=== PATIENT | male | born 1995 | race Caucasian/White ===

== ENCOUNTER 2016-12-10 10:46 | Emergency (ER) | payer OTHER ==
[~2016-12-10] VITALS: Ht 177.8 cm; Wt 63.3 kg
[~2016-12-10 10:46] MED LIST: KENALOG,ARISTOC80 GM TP; TYLENOL EXTRA500 MG PO; VENTOLIN HFA18 GM IH; XANAX0.5 MG PO
[2016-12-10 12:14] LABS: HEMATOCRIT 41.9 % (38.0-50.0); MCH 29.1 PG (29.0-34.0); MCHC 33.9 G/DL (30.0-36.0); MCV 85.9 FL (86-99); MEAN PLAT.VOLUME 8.7 uM^3 (9.0-12.4); PLATELET COUNT 336 K/uL (156-360); RBC DIS.WIDTH-CV 12.3 % (11.8-14.6); RED BLOOD COUNT 4.88 M/uL (4.00-5.50); WHITE BLOOD COUNT 9.6 K/uL (4.1-10.2)
[2016-12-10 12:26] LABS: CHLORIDE 106 mEq/L (99-109); POTASSIUM 4.3 mEq/L (3.7-5.4); SODIUM 138 mEq/L (136-147)
[2016-12-10 12:29] LABS: GLUCOSE 96 mg/dL (70-99)
[2016-12-10 12:30] LABS: ANION GAP 7 MEQ/L (2-14); TOTAL BILIRUBIN 0.6 mg/dL (0.0-1.0)
[2016-12-10 12:32] LABS: ALKALINE PHOSPHATASE 59 IU/L (3-129); GFR ESTIMATE (CALCULATED) > 59 mL/min/
[2016-12-10 12:33] LABS: UREA NITROGEN (BUN) 4 mg/dL (9-23)
[2016-12-10 12:36] LABS: LIPASE 7 U/L (1.0-51.0)
[2016-12-10 13:29] LABS: ADD MIUA? NO; BILIRUBIN NEGATIVE; BLOOD NEGATIVE; COLOR YELLOW ((YELLOW)); GLUCOSE (STRIP) NEGATIVE; KETONES NEGATIVE; LEUKOCYTES NEGATIVE; NITRITE NEGATIVE; PROTEIN (STRIP) NEGATIVE; SPECIFIC GRAVITY 1.008 (1.000-1.030); UCUL ADDED? NO; UROBILINOGEN 0.2 MG/DL (0.2-1.0)
[2016-12-10 16:35] VITALS: BP 123/71
== END 2016-12-10 16:36 | disposition home or self-care (01) ==
LOC: EME 10:46
DX: R19.7 Diarrhea, unspecified (principal); M54.5 Low back pain; J45.909 Unspecified asthma, uncomplicated
CPT/HCPCS: 72100; 74177; 80053; 81003; 83690; 85027; 99281; 99284